=== PATIENT | female | born 1970 | race Caucasian/White ===

== ENCOUNTER 2023-12-30 08:23 | Emergency (ER) | payer OTHER, SELFPAY ==
[2023-12-30] VITALS (7 sets, daily range): BP systolic 102–139; BP diastolic 63–85; BMI 20.3
--- NOTE | 2023-12-30 09:14 | ED.GENMED ---
History of Present Illness
General
Chief Complaint: Chest Pain
Source: patient
Exam Limitations: none
Time Seen by Provider: 12/30/23 09:00
Nursing documentation reviewed up to this point in time: agreed with
Travel History
Have you had any contact with someone who has COVID-19?: No
Do you have any symptoms of coronavirus? Fever > 100 degrees, chills, cough, shortness of breath, sore throat, loss of taste or smell, muscle aches, or headache?: No
History of Present Illness
History of Present Illness:
Patient is a 53year-old female who presents to the ER for evaluation. Patient reports around 1 to 2 AM while sleeping she had some left-sided chest discomfort. She went back to sleep but when she woke up at 6:30 AM the chest pain was gone but she
noticed the left arm discomfort. She reports pain is about a 4 out of 10 presently in her left arm. She reports is more of a discomfort. She had no associated nausea vomiting diaphoresis shortness of breath or radiation of the with chest pain
episode. She has no cardiac history. She does not smoke. She was not short of breath with this. She is not on oral supplements. No family history cardiac disease.
She does have reflux and reports this does not feel like her regular reflux though she did take reflux medication. This did not relieve her symptoms
Past History
Past History
ED Past Medical History: Asthma, GERD and Other (migraines, chronic neck pains with multiple chiropractic manipulations)
ED Past Surgical History: Gynecological (Tubel,) and Other (Sinus surgery)
Social History
Tobacco: Non-smoker
Alcohol: None
Personal: Single
Review of Systems
Review of Systems
Allergies reviewed?: Yes
All Other Systems: ROS reviewed and negative except as documented in HPI and ROS
Constitutional: Reports no symptoms; Denies fever, fatigue or chills
Cardiac: Reports chest pain; Denies diaphoresis, palpitations or syncope
ABD/GI: Reports no symptoms
: Reports no symptoms
Musculoskeletal: Reports other (pt w/ 02/27 left arm discomfort )
Skin: Reports no symptoms
Psychiatric: Reports no symptoms
Phy Exam
General Physical Exam
General Presentation: no apparent distress
General age: appears stated age
General Skin: warm and dry
General Habitus: normal
General Mental: alert
General Hydration: appears well hydrated
Eye Exam
Eye Exam: PERRL and EOMI
Eye Exam General: PERRL: bilateral and EOM intact: bilateral
Pupil Exam: Bilateral: round and reactive
Cardiovascular Exam
Cardiovascular Exam: regular rate/rhythm, no murmur and normal peripheral pulses
Pulmonary Exam
Pulmonary Exam: lungs clear and no respiratory distress
Neurological Exam
Neurological Exam: alert and oriented x3
Musculoskeletal Exam
Musculoskeletal Exam: full ROM
Skin Exam
Skin Exam: normal color and warm/dry
Psychiatric Exam
Psychiatric Exam: normal mood/affect
Scores
Heart Score for Chest Pain Patients
STEMI patient?: Not applicable
Course
Orders/Labs/Results
Orders:
Orders
12/30/23 08:36
Electrocardiogram (*1) Urgent
Reason for Study: Chest Pain
EKG- Treatment ONCE
12/30/23 09:07
IV Insert/Care/Rem.- Treatment PRN
12/30/23 09:08
Cardiac Monitoring- Treatment ONCE
CR Chest - 2 Views Urgent
Comment:
Reason For Exam: cp
12/30/23 09:16
Complete Blood Count/With Diff Urgent
Comprehensive Metabolic Panel Urgent
Troponin I Urgent
12/30/23 11:18
EKG- Treatment ONCE
12/30/23 12:00
Electrocardiogram (*1) Stat
Reason for Study: Other
Other Reason for Exam: chest pain
12/30/23 12:11
Troponin I Urgent
Abnormal Lab Results
12/30/23
09:16
WBC 3.3 L 10^3/uL
(4.8-10.8)
12/30/23 09:16
12/30/23 09:16
Vital Signs
Initial and Last Documented VS:
Initial Vital Signs
Temp Pulse Resp BP Pulse Ox
97.6 F 67 16 123/72 99
12/30/23 08:44 12/30/23 08:44 12/30/23 08:44 12/30/23 08:44 12/30/23 08:44
Last Documented Vital Signs
Temp Pulse Resp BP Pulse Ox
97.6 F 61 16 109/64 97
12/30/23 08:44 12/30/23 13:30 12/30/23 13:30 12/30/23 13:00 12/30/23 13:30
MDM/Problems Addressed
Differential Diagnosis Includes:
Not limited to muscular pain, ACS less likely dissection shortness of breath
MDM/Problems Addressed:
As discussed patient is a 53-year-old female who presented to the ER with chest pain. Patient reports the chest pain had resolved however she has had intermittent left arm pain. Patient in no acute distress here with stable vitals .patient has no
shortness of breath no radiation of pain or back pain. No acute findings on EKG EKG is unchanged. She has had 2 negative cardiac troponins okay findings on chest x-ray. No shortness of breath
Reviewed past visits here in the ER. She was seen in the ER twice at least in the past for chest pain. She does have a drafter electronic at [facility] believes that she did have stress test years ago. Will DC with outpatient cardiology follow-up
with her drafter electronic. She is to return if any worsening of symptoms . case d/c w/ DR Croft
*Radiology
Radiology exam reviewed: radiology read reviewed
*Pulse Oximetry
Patient hypoxic: no
*EKG
Interpreted by ED Provider?: Yes
Interpretation: abnormal
Comparison EKG: no changes
Heart Rate: 72
Rate: normal
Rhythm: sinus
Ischemia: non-specific ST changes
*Critical Care Note
Total Time (30-74mins, 75-104mins- exclusive of procedures): Not Applicable
ED Attending Note
-
Portions of this chart may have been created with voice recognition software.� Occasional wrong word or��sound alike� substitutions may have occurred due to the inherent limitations of voice recognition software.
Discharge Plan
Departure
Patient Disposition: Home (Routine Discharge)
Date of Disposition: 12/30/23
Time of Disposition: 14:25
Patient with high blood pressure during this ER visit?: No
Condition: Fair
Covid-19: Not Applicable
Discharge Problem:
Chest pain
Instructions: Chest Pain NON-[facility] Church Administrator Follow Up
Prescriptions:
No Action
acetaminophen [Tylenol Extra Strength] 500 MG tablet
1,000 mg PO Q4HPRN PRN (Reason: mild pain)
albuterol sulfate [Ventolin HFA] 90 MCG/PUFF HFA aerosol inhaler
1 puff inhalation R Q6HPRN PRN (Reason: asthma)
calcium carbonate [Tums] 200 mg calcium (500 mg) Tablet,Chewable
200 mg PO BIDPRN PRN (Reason: gerd)
fluticasone propionate [Flonase] 50 mcg/actuation [place],Suspension
1 spray INTRANASAL DAILY
dexlansoprazole [Dexilant] 60 mg Capsule,Biphase Delayed Releas
60 mg PO DAILY
Referrals:
Maxwell Pace MD [Family Provider] -
Activity Restrictions/Additional Instructions:
As discussed follow-up with your drafter electronic for reevaluation. Please call them Monday to schedule appointment as soon as possible return if any worsening of symptoms.
Interventions
Interventions:
*Risk Screen - Suicide Last Done: 12/30/23 09:06
*General Assessment Last Done: 12/30/23 09:06
*Neglect/Abuse Screening Last Done: 12/30/23 09:06
ED- Fall Risk Assessment Last Done: 12/30/23 09:07
*ED COVID-19 Vaccine History Last Done: 12/30/23 08:44
ED- Cardiac Assessment Last Done: 12/30/23 09:15
[2023-12-30 09:24] LABS: % Basophils 0.9 % (0-2); % Eosinophils 1.8 % (0-6); % Lymphocytes 39.8 % (20.5-51.1); % Monocytes 8.8 % (1.7-9.3); % Neutrophils 48.7 % (42.2-75.2); Absolute Eosinophils 0.1 10^3/uL (0-0.7); Absolute Lymphocytes 1.3 10^3/uL (1.2-3.4); Absolute Monocytes 0.3 10^3/uL (0.1-0.6); Absolute Neutrophils 1.6 10^3/uL (1.4-6.5); Hemoglobin 13.4 g/dL (12.0-16.0); Mean Corp Hgb Conc. 34.4 g/dL (33.0-37.0); Mean Corpuscular Hgb 30.8 pg (27.0-31.0); Mean Corpuscular Volume 89.7 fL (81.0-99.0); Mean Platelet Volume 9.7 fL (7.4-10.4); Nucleated Red Blood Cells % 0 %; Platelet Count 264 10^3/uL (130-400); Red Blood Cell Count 4.35 10^6/uL (4.20-5.40); Red Cell Dist. Width 12.1 % (11.5-14.5); White Blood Cell Count 3.3 10^3/uL (4.8-10.8)
[2023-12-30 09:37] LABS: ALT (SGPT) 22 U/L (0-35); AST (SGOT) 33 U/L (14-36); Alkaline Phosphatase 60 U/L (38-126); Blood Urea Nitrogen 9 mg/dl (7-17); Calcium 9.6 mg/dl (8.4-10.2); Carbon Dioxide 28 mmol/L (22-30); Chloride 105 mmol/L (98-107); Estimated Creatinine Clearance 72 ml/min; Glucose 97 mg/dl (70-99); Potassium 3.8 mmol/L (3.5-5.1); Sodium 142 mmol/L (135-145); Total Bilirubin 0.7 mg/dl (0.2-1.3); Total Protein 6.5 g/dl (6.3-8.2); eGFR > 60.00
[2023-12-30 09:48] LABS: Troponin I < 0.012 ng/ml
[2023-12-30 12:46] LABS: Troponin I < 0.012 ng/ml
== END 2023-12-30 14:40 | disposition home or self-care (01) ==
LOC: EMR 08:23
PROVIDERS: Nurse Practitioner; EMERGENCY PHYSICIAN Emergency Medicine; FAMILY PHYSICIAN Family Medicine
DX: R07.89 Other chest pain (principal)
CPT/HCPCS: 99285; 71046; 80053; 84484; 85025; 93005

== ENCOUNTER → 2024-11-22 12:57 | Outpatient (REF) | payer OTHER, SELFPAY | LOC: WDC 12:57 | PROVIDERS: ATTENDING PHYSICIAN Obstetrics & Gynecology; FAMILY PHYSICIAN Family Medicine | DX: Z12.31 Encounter for screening mammogram for malignant neoplasm of breast (principal) | CPT/HCPCS: 77063; 77067 ==

== ENCOUNTER 2025-07-19 09:47 | Emergency (ER) | payer OTHER, SELFPAY ==
[2025-07-19 09:59] VITALS: BP 137/87
[2025-07-19 10:21] LABS: Hematocrit 39.6 % (37.0-47.0); Hemoglobin 13.2 g/dL (12.0-16.0); Mean Corp Hgb Conc. 33.3 g/dL (33.0-37.0); Mean Corpuscular Volume 87.8 fL (81.0-99.0); Nucleated Red Blood Cells % 0 %; Platelet Count 270 10^3/uL (130-400); Red Cell Dist. Width 12.2 % (11.5-14.5)
[2025-07-19 10:38] LABS: ALT (SGPT) 15 U/L (0-35); AST (SGOT) 25 U/L (14-36); Albumin 4.6 g/dl (3.5-5.0); Alkaline Phosphatase 61 U/L (38-126); Blood Urea Nitrogen 13 mg/dl (7-17); Calcium 9.8 mg/dl (8.4-10.2); Carbon Dioxide 27 mmol/L (22-30); Chloride 109 mmol/L (98-107); Glucose 100 mg/dl (70-99); Potassium 3.8 mmol/L (3.5-5.1); Sodium 143 mmol/L (135-145); Total Protein 7.3 g/dl (6.3-8.2); eGFR > 60.00
[2025-07-19 10:48] LABS: Troponin I < 0.012 ng/ml
[2025-07-19 11:07] VITALS: BP 136/72
[2025-07-19 12:05] LABS: D-Dimer 0.70 ug/mlFEU (0.00-0.50)
--- NOTE | 2025-07-19 12:46 | ED.GENMED ---
History of Present Illness
General
Chief Complaint: Chest Pain
Source: patient
Exam Limitations: none
Time Seen by Provider: 07/19/25 11:13
Nursing documentation reviewed up to this point in time: agreed with
History of Present Illness
History of Present Illness:
Patient is a 55-year-old female with history of asthma who presents emergency department with concerns of chest pain. Patient states that over the past week she has had an intermittent sharp pain across her left upper back which occurs randomly
without any clear exertional or pleuritic component. This is not tearing in quality. This morning, patient states after waking around 730 she developed an intermittent sharp pain in her left chest. She denies any radiation of this pain into her
back and believes that these are 2 separate 'pains'. Patient states chest pain has been intermittent however does seem worse with deep inspiration. No exertional component. She denies any associated shortness of breath lightheadedness/dizziness,
diaphoresis, nausea. She denies any recent fever or cough.
Patient did also have a sensation that her heart was racing throughout the morning and her Apple Watch detected a heart rate in the 130s. This seemed to resolve after about 45 minutes and has now been stable in the 80s/90s.
Patient denies any history of cardiac arrhythmias. No recent travel or recent surgeries. No exogenous hormone use. No personal or family history of blood clots or clotting disorders.
Past History
Past History
ED Past Medical History: Asthma, GERD and Other (migraines, chronic neck pains with multiple chiropractic manipulations)
ED Past Surgical History: Gynecological (Tubel,) and Other (Sinus surgery)
Social History
Tobacco: Non-smoker
Alcohol: None
Personal: Single
Review of Systems
Review of Systems
Allergies reviewed?: Yes
All Other Systems: ROS reviewed and negative except as documented in HPI and ROS
Phy Exam
Physical Exam
Physical Exam:
Vitals: Mildly hypertensive, otherwise vital signs stable. Afebrile
General: Patient is well appearing, no acute distress. Nontoxic appearing
Skin: Warm and dry, no rashes or lesions
Head: Normocephalic, atraumatic
Eyes: Sclera nonicteric. EOMs intact. No nystagmus.
Throat: Protecting airway
Neck: Normal ROM, no cervical spine tenderness, no meningismus
Cardiac: Regular rate and rhythm, no murmurs. No reproducible chest wall/upper back tenderness. 2+ palpable radial pulses bilaterally
Pulm: Normal respiratory effort, no wheezes, rales, rhonchi heard on exam
Abdomen: Abdomen soft and nontender
Extremities: No evidence of cyanosis or edema. Negative Homans' sign bilaterally.
Neuro: AAOx3. Grossly intact.
Psychiatric: Normal affect.
Scores
Heart Score for Chest Pain Patients
STEMI patient?: Not applicable
Course
Orders/Labs/Results
Orders:
Orders
07/19/25 09:58
Electrocardiogram (*1) Urgent
Reason for Study: Chest Pain
Cardiac Monitoring- Treatment ONCE
EKG- Treatment ONCE
IV Insert/Care/Rem.- Treatment PRN
O2 Therapy [RESP] Urgent
Titrate/Wean O2 to maintain O2 sat greater than (%): 90
Special Instructions: Maintain sats >/=90%
Pulse Ox/spot Check [RESP] Urgent
Quantity: 1
Special Instructions: ON ROOM AIR
07/19/25 10:09
Complete Blood Count/With Diff Urgent
Comprehensive Metabolic Panel Urgent
TSH Reflex To Free T4 Urgent
Comment: ADD ON
Troponin I Urgent
07/19/25 11:36
Add On- LAB Urgent
Tests Added?: TSH w/ reflex to T4
07/19/25 11:44
D-Dimer Urgent
07/19/25 12:23
CT Chest PE Study Urgent
Comment:
Reason For Exam: Left upper back pain/ chest pain, elevated dimer
07/19/25 13:08
Troponin I Urgent
07/19/25 13:10
Electrocardiogram (*1) Urgent
Reason for Study: Chest Pain
EKG- Treatment ONCE
Abnormal Lab Results
07/19/25 07/19/25
10:09 11:44
WBC 4.3 L 10^3/uL
(4.8-10.8)
D-Dimer 0.70 H ug/mlFEU
(0.00-0.50)
Chloride 109 H mmol/L
(98-107)
Glucose 100 H mg/dl
(70-99)
07/19/25 10:09
07/19/25 10:09
Vital Signs
Initial and Last Documented VS:
Initial Vital Signs
Temp Pulse Resp BP Pulse Ox
97.8 F 79 18 137/87 99
07/19/25 09:59 07/19/25 09:59 07/19/25 09:59 07/19/25 09:59 07/19/25 09:59
Last Documented Vital Signs
Temp Pulse Resp BP Pulse Ox
97.8 F 65 16 115/74 99
07/19/25 09:59 07/19/25 14:48 07/19/25 14:48 07/19/25 14:48 07/19/25 14:48
MDM/Problems Addressed
Differential Diagnosis Includes:
Not limited to: chest wall/upper back strain, costochondritis, pericarditis, pleurisy, pneumonia, acute coronary syndrome, pulmonary embolism, etc.
MDM/Problems Addressed:
55-year-old female with one week of intermittent left upper back discomfort now with intermittent left pleuritic chest pain. Also w/ episode of tachycardia and palpitations this morning. No exertional component to symptoms. No associated shortness
of breath, lightheadedness, diaphoresis. No notable inciting injury or event. No associated fever, productive cough. No PE risk factors.
Vitals and physical exam as above.
Differential as above. Patient overall very well appearing. Symptoms do not seem anginal in nature. Patient has no PE risk factors or evidence of DVT on exam � however PE would be on differential given pleuritic and radiation into left scapular
region.
ED plan: labs, serial troponin/EKGs, D-dimer. Patient declined any analgesia. Will reassess after above.
Update: Basic labs unremarkable. Initial troponin undetectable with nonischemic EKG. Unfortunately, d-dimer was mildly elevated to 0.7. Discussed with patient � will obtain CTA chest to rule out PE.
Update: CTA without evidence of PE or other acute abnormalities in chest. Incidental finding of enlarged right axillary lymph node, recommended follow up with dedicated ultrasound with PCP. Patient provided a copy of report.
Repeat EKG unchanged and troponin undetectable. Patient has remained stable and essentially asymptomatic in ED. She has had normal heart rate without any evidence of arrhythmia on monitor. At this point � very low suspicion for acute
cardio/pulmonary emergent process. Possible musculoskeletal.
Feel stable for discharge w/ primary care follow-up. Strict return precautions discussed. Patient comfortable with plan.
Chronic conditions affecting care:
N/A
Acute Exacerbation and/or Progression of Chronic Illness:
N/A
*Radiology
Radiology exam reviewed: radiology read reviewed
*Pulse Oximetry
SaO2: 99
Oxygen Mode of Delivery: Room air
Patient hypoxic: no
*EKG
Interpreted by ED Provider?: Yes
EKG Intrepretation Date: 07/19/25
Interpretation: abnormal
Comparison EKG: no changes
Heart Rate: 71
Rate: normal
Rhythm: sinus
[place]: normal axis
Interval: normal QT interval
QRS Pattern: normal QRS
Ischemia: non-specific ST changes
*Platform Architect Interpretation
Rate: normal
Interpretation: normal
Heart Rate: 70
Rhythm: sinus
*Critical Care Note
Total Time (30-74mins, 75-104mins- exclusive of procedures): Not Applicable
ED Attending Note
-
Portions of this chart may have been created with voice recognition software.� Occasional wrong word or��sound alike� substitutions may have occurred due to the inherent limitations of voice recognition software.
Discharge Plan
Departure
Patient Disposition: Home (Routine Discharge)
Date of Disposition: 07/19/25
Time of Disposition: 14:34
Patient with high blood pressure during this ER visit?: No
Condition: Good
Discharge Problem:
Chest pain, Upper back pain
Instructions: Chest pain (DC), BLOOD PRESSURE
Prescriptions:
No Action
acetaminophen [Tylenol Extra Strength] 500 MG tablet
1,000 mg PO Q4HPRN PRN (Reason: mild pain)
albuterol sulfate [Ventolin HFA] 90 MCG/PUFF HFA aerosol inhaler
1 puff inhalation R Q6HPRN PRN (Reason: asthma)
calcium carbonate [Tums] 200 mg calcium (500 mg) Tablet,Chewable
200 mg PO BIDPRN PRN (Reason: gerd)
fluticasone propionate [Flonase] 50 mcg/actuation [place],Suspension
1 spray INTRANASAL DAILY
dexlansoprazole [Dexilant] 60 mg Capsule,Biphase Delayed Releas
60 mg PO DAILY
Referrals:
Maxwell Pace MD [Family Provider, [facility]] - Follow up in 5-7 days
Activity Restrictions/Additional Instructions:
RETURN TO THE EMERGENCY DEPARTMENT WITH ANY PERSISTENT/WORSENING CHEST PAIN/BACK PAIN, ANY SHORTNESS OF BREATH/DIFFICULTY BREATHING, FEVERS OR PRODUCTIVE COUGH, LIGHTHEADEDNESS/DIZZINESS, WORSENING CURRENT SYMPTOMS, OR ANY OTHER CONCERNS
- As discussed�your lab work showed no acute abnormalities. Your cardiac enzymes were negative. Your CT of your chest showed no evidence of pulmonary embolism however did make note of an enlarged lymph node in your right axillary region. Please
have a dedicated ultrasound performed outpatient with your primary care to ensure this resolves.
- Your chest pain/upper back pain may be musculoskeletal in nature. Please take Motrin and/or Tylenol as needed for discomfort.
- Follow-up with your primary care provider for further evaluation/management and to ensure that your symptoms improve
Monitor your symptoms closely and return to the emergency department with any acute worsening/new symptoms or any other concerns
Interventions
Interventions:
*Risk Screen - Suicide Last Done: 07/19/25 09:59
*General Assessment Last Done: 07/19/25 11:02
*Neglect/Abuse Screening Last Done: 07/19/25 11:02
*ED- Fall Risk Assessment Last Done: 07/19/25 11:02
*ED COVID-19 Vaccine History Last Done: 07/19/25 11:02
*Nursing Disposition Last Done: 07/19/25 14:48
ED- Cardiac Assessment Last Done: 07/19/25 11:01
Discharge Date and Time
Discharge Date/Time: 07/19/25 14:49
Print Language: [id number]
[2025-07-19 13:05] VITALS: BP 111/72
[2025-07-19 13:39] LABS: Troponin I < 0.012 ng/ml
[2025-07-19 14:48] VITALS: BP 115/74
== END 2025-07-19 14:49 | disposition home or self-care (01) ==
LOC: EMR 09:47
PROVIDERS: Emergency Medicine; Physician Assistant; EMERGENCY PHYSICIAN Emergency Medicine; FAMILY PHYSICIAN Family Medicine
DX: R07.9 Chest pain, unspecified (principal); M54.6 Pain in thoracic spine; J45.909 Unspecified asthma, uncomplicated; K21.9 Gastro-esophageal reflux disease without esophagitis; M54.2 Cervicalgia; G89.29 Other chronic pain
CPT/HCPCS: 99284; 71275; 80053; 84443; 84484; 85025; 85379; 93005; Q9967